=== PATIENT | female | born 1990 | race Caucasian/White ===

== ENCOUNTER 2020-09-18 23:09 | Emergency (ER) | payer BC ==
[~2020-09-18] VITALS: Ht 154.9 cm; Wt 47.6 kg
[2020-09-18] MEDS ORDERED: ONDANSETRON HCL/PF 4 MG/2 ML VIAL ONE (23:59)
[2020-09-19] MEDS ORDERED: IV D5 LR 1,000 ML IV ONE
[2020-09-19] MEDS ORDERED: ONDANSETRON HCL/PF - ER 4 MG/2 ML VIAL IV ONE
--- NOTE | 2020-09-19 | NUR ---
PT CAME TO THE ER C/O ABD PAIN W/ N/V/D X 2 DAYS. PT AAOX4, VSS, RESPIRATIONS EVEN AND UNLABORED AT THIS TIME. PT CONNECTED TO THE MONITOR AND POX
[2020-09-19 00:02] LABS: BASOPHILS # (AUTO) 0.1 K/uL (0.0-0.2); BASOPHILS % (AUTO) 0.5 % (0.0-2.0); EOSINOPHILS % (AUTO) 0.5 % (0.0-6.0); HEMATOCRIT 40 % (33-45); LYMPHOCYTES # (AUTO) 2.8 K/uL (0.8-4.8); LYMPHOCYTES % (AUTO) 26.6 % (20.0-44.0); MEAN CORPUSCULAR HGB CONC 35 g/dl (31.0-36.0); MEAN CORPUSCULAR VOLUME 92 fL (82-100); MONOCYTES # (AUTO) 0.7 K/uL (0.1-1.30); MONOCYTES % (AUTO) 6.4 % (2.0-12.0); PLATELET COUNT (AUTO) 228 K/uL (150-450); RED BLOOD CELL COUNT(AUTO) 4.35 MIL/uL (4.0-5.2); WHITE BLOOD COUNT (AUTO) 10.6 K/uL (4.3-11.0)
[2020-09-19 00:11] LABS: CALCIUM, SERUM 9.3 mg/dL (8.5-10.1); CREATININE 0.8 mg/dL (0.6-1.3)
[2020-09-19 00:25] LABS: ALBUMIN 4.3 g/dL (3.4-5.0); BILIRUBIN,DIRECT 0.1 mg/dL (0.0-0.2); BILIRUBIN,TOTAL 0.5 mg/dL (0.2-1.0); TOTAL PROTEIN, SERUM 7.7 g/dL (6.4-8.2)
[2020-09-19] MEDS ORDERED: DICY20TA11 PO (00:54)
[2020-09-19] MEDS ORDERED: ONDA4TAB5 PO (00:54)
[2020-09-19] MEDS ORDERED: POTASSIUM CHLORIDE 20 MEQ TAB.PRT.SR PO ONE ×2 (01:03→01:30)
[2020-09-19 01:40] VITALS: BP 126/79
--- NOTE | 2020-09-19 01:40 | NUR ---
IV removed. Catheter intact and site benign. Pressure and 4x4 applied to site. No bleeding noted.
--- NOTE | 2020-09-19 01:40 | NUR ---
Patient discharged to home in stable condition. Written and verbal after care instructions given. Patient verbalizes understanding of instruction.
== END 2020-09-19 01:41 | disposition home or self-care (01) ==
LOC: ER 23:25
DX: R11.2 Nausea with vomiting, unspecified (principal); R19.7 Diarrhea, unspecified; R10.84 Generalized abdominal pain
CPT/HCPCS: 36415; 80048; 80076; 83690; 84702; 85025; 96361; 96374; 99283; J2405; J3490 ×2